=== PATIENT | female | born 1970 | race African-American/Black ===

== ENCOUNTER 2022-09-21 12:16 | Inpatient (IN) | payer MEDICAID ==
[~2022-09-21] VITALS: Ht 162.6 cm; Wt 72.0 kg
[2022-09-21] MEDS: BLOOD GLUCOSE MONITORING 1 DEV DEV FS SCH ×10 (02:00→23:00)
[2022-09-21 12:17] VITALS: BP 157/67
[2022-09-21] MEDS ORDERED: NACL 0.9% 1,000 ML IV ONE ×2 (12:25→17:35)
--- NOTE | 2022-09-21 12:30 | NUR ---
51 y/o female biba from home, c/o high bs reading at home, generalized weakness and cp that started this morning. per [facility], bs reading was reading high on their monitor. pt reports taking 18 units of insulin this morning. a&ox4, does not ambulate at this time due to pain and weakness. skin warm/dry/intact. abd x4 normoactive, round/soft/nontender. pt states she is currently having abd pain and is requesting medication for gerd. pmh: type 1 diabetic, htn, gerd nka med: 18 units of insulin around 0900 today
[2022-09-21 12:40] LABS: BASOPHILS # (AUTO) 0.1 K/uL (0.00-0.22); BASOPHILS % (AUTO) 0.5 % (0.0-2.0); HEMATOCRIT 35.5 % (36-48); HEMOGLOBIN 11.3 g/dL (12.0-16.0); LYMPHOCYTES # (AUTO) 0.8 K/uL (2.5-16.5); LYMPHOCYTES % (AUTO) 6.5 % (20.5-51.1); MEAN CORPUSCULAR HEMOGLOBIN 29 pg (27-31); MEAN CORPUSCULAR HGB CONC 32 g/dL (33-37); MEAN CORPUSCULAR VOLUME 90.2 fL (80-94); MONOCYTES # (AUTO) 0.1 K/uL (0.8-1.0); NEUTROPHILS # (AUTO) 10.7 K/uL (1.8-7.7); PLATELET COUNT (AUTO) 282 K/uL (140-450); RED BLOOD CELL COUNT(AUTO) 3.93 MIL/uL (4.20-5.40); RED CELL DISTRIBUTION WIDTH 13.9 % (11.6-13.7); WHITE BLOOD COUNT (AUTO) 11.6 K/uL (4.8-10.8)
[2022-09-21 13:00] LABS: ALBUMIN 3.8 g/dL (3.4-5.0); CARBON DIOXIDE 20.2 mmol/L (21-32); CREATININE 1.8 mg/dL (0.6-1.3); POTASSIUM 4.2 mmol/L (3.5-5.1)
[2022-09-21] MEDS ORDERED: DEXT 5% / NACL 0.45% 1,000 ML IV SCH ×2 (13:25→14:45)
[2022-09-21] MEDS ORDERED: INSULIN REGULAR, HUMAN 100 UNIT in NACL 0.9% 100 ML IV SCH ×4 (13:25→14:45)
[2022-09-21] MEDS ORDERED: NACL 0.9% 1,000 ML IV SCH (13:25)
[2022-09-21] MEDS ORDERED: DEXTROSE 50% 50 ML SYR IVP PRN ×2 (13:25→14:45)
--- NOTE | 2022-09-21 13:27 | NUR ---
51 y/o female biba from home d/t high blood sugar. Patient reports high blood sugar at home. Per [facility], patient's blood sugar on scene read HI. Patient reports nausea and vomiting. Patient denies any fever or chills. Patient states "this feels like DKA, I've been in DKA before." Medical History: DM, HTN, GERD NKDA
[2022-09-21] MEDS ORDERED: ONDANSETRON 4 MG/2 ML VIAL IVP ONE (13:55)
[2022-09-21] MEDS ORDERED: MORPHINE SULFATE 2 MG/ML SYR IVP STA (13:55)
--- NOTE | 2022-09-21 14:16 | NUR ---
Patient does not remember her medication. Called and spoke to Romulo at [facility] to get a list of medication for patient.
[2022-09-21] MEDS ORDERED: SYN.075 PO (14:27)
[2022-09-21] MEDS ORDERED: VITD400 PO (14:27)
[2022-09-21] MEDS ORDERED: INSU100I15 SQ (14:27)
[2022-09-21] MEDS ORDERED: INSU100V3 SQ (14:27)
[2022-09-21] MEDS ORDERED: GABA300C PO (14:27)
[2022-09-21] MEDS ORDERED: [UNRECOGNIZED DRUG - CODE] PO (14:27)
--- NOTE | 2022-09-21 14:28 | NUR ---
Med rec complete.
[2022-09-21] MEDS ORDERED: POTASSIUM CHLORIDE 10 MEQ TABER PO PRN (14:40)
[2022-09-21] MEDS ORDERED: guaiFENesin DM 200/20 MG-10 ML 10 ML UDC PO PRN (14:40)
[2022-09-21] MEDS ORDERED: ONDANSETRON 4 MG/2 ML VIAL IM/IVP PRN (14:40)
[2022-09-21] MEDS ORDERED: ZOLPIDEM 5 MG TAB PO PRN (14:40)
[2022-09-21] MEDS ORDERED: DOCUSATE SODIUM 100 MG GELCAP PO PRN (14:40)
[2022-09-21] MEDS ORDERED: ACETAMINOPHEN 325 MG TAB PO PRN (14:40)
[2022-09-21] MEDS: NACL 0.9% 1,000 ML IV SCH ×3 (14:45→22:45)
[2022-09-21] MEDS ORDERED: INSULIN REGULAR, HUMAN 100 UNIT/ML VIAL IVP SCH (14:45)
[2022-09-21] MEDS ORDERED: POTASSIUM CHLORIDE 40 MEQ, LIDOCAINE MPF 1% 25 MG in NACL 0.9% 250 ML IV PRN ×6 (14:45)
[2022-09-21 15:38] LABS: CHOL/HDL RATIO 2.6 (1-4.5); FREE T4 (FREE THYROXINE) 1.49 ng/dL (0.76-1.46); MAGNESIUM 1.8 mg/dL (1.8-2.4); PHOSPHORUS 4.4 mg/dL (2.5-4.9); THYROID STIMULATING HORMONE 0.73 uIU/mL (0.34-3.74)
[2022-09-21 15:49] LABS: PROTHROMBIN TIME 10.1 secs (10.8-13.4)
--- NOTE | 2022-09-21 16:20 | NUR ---
Dr. Jolley, admitting doctor, evaluating patient at bedside.
[2022-09-21 17:07] LABS: CARBON DIOXIDE 17.1 mmol/L (21-32); CREATININE 1.9 mg/dL (0.6-1.3); POTASSIUM 4.1 mmol/L (3.5-5.1)
--- NOTE | 2022-09-21 17:35 | NUR ---
Dr. Sprague, project manager, gave new order for one liter bolus now. Orders carried out.
[2022-09-21 18:09] LABS: APPEARANCE,URINE CLEAR (CLEAR); BILIRUBIN,URINE NEGATIVE (NEGATIVE); BLOOD, URINE TRACE-I (NEGATIVE); COLOR,URINE YELLOW (YELLOW); LEUKOCYTE ESTERASE ,URINE NEGATIVE (NEGATIVE); NITRITE, URINE NEGATIVE (NEGATIVE); UGLUCOSE 3+ (NEGATIVE)
--- NOTE | 2022-09-21 18:19 | NUR ---
Patient was assisted in using bedpan. Urine sample collected and walked to lab.
[2022-09-21 18:27] LABS: RBC,URINE 0-5 /HPF (0-5); TRICHOMONAS,URINE None Seen /HPF (None Seen); WBC,URINE 0-5 /HPF (0-5); YEAST,URINE None Seen /HPF (None Seen)
--- NOTE | 2022-09-21 19:08 | NUR ---
Report given to ELENI Ochoa for transfer of care.
--- NOTE | 2022-09-21 20:06 | NUR ---
Report given for transfer of care to Carie KNOWLES
--- NOTE | 2022-09-21 20:15 | NUR ---
Received report from JAMES Ochoa RN. Patient A/A/O x4, able to ambulate, on Insulin gtts @6.6 IU/ml on REJ G20+ NS @250ml/hr on LAC, Continent, Accucheck q1H.
[2022-09-21 20:34] LABS: ANION GAP 16.6 (8-16); CARBON DIOXIDE 24.1 mmol/L (21-32); CREATININE 1.7 mg/dL (0.6-1.3); POTASSIUM 3.7 mmol/L (3.5-5.1)
[2022-09-21 21:00] VITALS: BP 142/67
[2022-09-21 22:00] VITALS: BP 171/62
[2022-09-21 23:00] VITALS: BP 123/50
[2022-09-21] MEDS: HYDROcodone/APAP 7.5/325 MG 1 TAB PO PRN (23:40)
[2022-09-22] VITALS (15 sets, daily range): BP systolic 90–128; BP diastolic 42–71
[2022-09-22] MEDS: BLOOD GLUCOSE MONITORING 1 DEV DEV FS SCH ×10 (00:06→20:37)
[2022-09-22 00:30] LABS: ANION GAP 10.9 (8-16); CARBON DIOXIDE 28.4 mmol/L (21-32); CREATININE 1.5 mg/dL (0.6-1.3); POTASSIUM 3.3 mmol/L (3.5-5.1)
[2022-09-22] MEDS: NACL 0.9% 1,000 ML IV SCH ×6 (02:45→20:30)
[2022-09-22 06:23] LABS: BASOPHILS % (AUTO) 0.4 % (0.0-2.0); EOSINOPHILS % (AUTO) 0.1 % (0.0-4.0); HEMATOCRIT 27.3 % (36-48); LYMPHOCYTES # (AUTO) 1.7 K/uL (2.5-16.5); MEAN CORPUSCULAR HEMOGLOBIN 29 pg (27-31); MEAN CORPUSCULAR HGB CONC 33 g/dL (33-37); MONOCYTES # (AUTO) 0.8 K/uL (0.8-1.0); NEUTROPHILS # (AUTO) 10.3 K/uL (1.8-7.7); NEUTROPHILS % (AUTO) 80.5 % (42.2-75.2); PLATELET COUNT (AUTO) 235 K/uL (140-450); RED BLOOD CELL COUNT(AUTO) 3.07 MIL/uL (4.20-5.40); RED CELL DISTRIBUTION WIDTH 14.3 % (11.6-13.7); WHITE BLOOD COUNT (AUTO) 12.8 K/uL (4.8-10.8)
[2022-09-22 06:34] LABS: ALBUMIN 2.8 g/dL (3.4-5.0); ANION GAP 14.1 (8-16); CARBON DIOXIDE 24.6 mmol/L (21-32); CREATININE 1.7 mg/dL (0.6-1.3); POTASSIUM 3.7 mmol/L (3.5-5.1); TOTAL BILIRUBIN 0.7 mg/dL (0.0-1.0)
[2022-09-22 06:50] LABS: HEMOGLOBIN 8.9 g/dL (12.0-16.0)
--- NOTE | 2022-09-22 07:18 | NUR ---
Report given to ROGERS [employer] REFINER OPERATOR. All questions answered. Endorse with Insulin Drip running @0.05units & D5 1/2NS @200ml/hr. Last BS @0630= 114mg/dl.
--- NOTE | 2022-09-22 08:03 | NUR ---
ON DUTY RECEIVED THIS PT A/OX4, SPEAKS FULL SENTENCES, FOLLOWS COMMAND, DENIES ANY PAIN AND UNCONFORT. PT WAS ON INSULINE DRIP ON 0.05U/HR. WITH D5 1/2 NS RUNING ON 200ML/HR. BUT BAG ALREADY EMPTY. NEW BAG WAS CHANGED AND TURNED TO 250ML/HR PER EMAR ORDER. BS CHECK DONE 71. APPLE JUICE AND CRAMBARY JUICE OFFERED AND ENCOURAGED PT TO DRINK. YULISSA THE BLOOD FOR CMP VIA LJ IV SL @0800 PT WALKED TO BATHROOM BY HERSELF IN STEADY GAIT ONCE @0740
[2022-09-22 08:26] LABS: ANION GAP 10.9 (8-16); CARBON DIOXIDE 27.1 mmol/L (21-32); CREATININE 1.9 mg/dL (0.6-1.3)
--- NOTE | 2022-09-22 08:39 | NUR ---
PATIENT HAS BEEN SCREENED AND CATEGORIZED HIGH NUTRITION RISK. PATIENT WILL BE SEEN WITHIN 1-2 DAYS OF ADMISSION. 09/21/22-09/23/[address]
[2022-09-22] MEDS ORDERED: GABAPENTIN 300 MG CAP PO SCH ×2 (09:00)
[2022-09-22] MEDS: BENAZEPRIL 20 MG TAB PO SCH (09:00)
[2022-09-22] MEDS: amLODIPine 5 MG TAB PO SCH (09:00)
--- NOTE | 2022-09-22 09:10 | NUR ---
BS 68 NOW, INSULINE DRIP STOPPED. D5 1/2 NS TURNED INTO 150ML/HR FROM 250ML/HR. APPLE GIVEN ONE MORE TIME. BP IS IN LOW SITE. 90/69 HR 85. MORNING BP MEDS HOLD NOW.
[2022-09-22] MEDS: PANTOPRAZOLE 40 MG TABEC PO SCH (09:19)
[2022-09-22] MEDS ORDERED: DEXTROSE 50% 50 ML SYR IVP PRN (10:05)
[2022-09-22] MEDS: INSULIN LISPRO SLIDING SCALE 100 UNITS/ML VIAL SUBQ PRN ×2 (11:52→17:03)
[2022-09-22] MEDS: INSULIN LANTUS 100 UNITS/ML 10 ML VIAL SUBQ SCH (11:59)
--- NOTE | 2022-09-22 12:19 | NUR ---
PER PT REQUESTS, HOSPITAL GOWN AND LINEN WAS CHANGED WITH STUDENT NURSE ASSISTANCE.
--- NOTE | 2022-09-22 12:29 | NUR ---
LUNCH TRAY WAS OFFERED TO PT .
--- NOTE | 2022-09-22 13:23 | NUR ---
PER DR. VALDEZ'S MESSAGE. PT WAS ORDERED TO [facility]ARC TO M/S. NURSING SUP WAS NOTIFIED BY BELLA. KNOWLES.
--- NOTE | 2022-09-22 15:40 | NUR ---
09/22/22 RD INITIAL ASSESSMENT COMPLETED. PLEASE REFER TO NUTRITION ASSESSMENT UNDER CARE ACTIVITY FOR ESTIMATED NUTRITIONAL NEEDS. 1. CONTINUE WITH [facility] DIET. 2. MONITOR PO INTAKE 3. RD TO FOLLOW-UP 3-5 DAYS, MODERATE RISK TARUN SAGE RD
[2022-09-22] MEDS: GABAPENTIN 300 MG CAP PO SCH (17:08)
[2022-09-22] MEDS: HYDROcodone/APAP 7.5/325 MG 1 TAB PO PRN (20:23)
--- NOTE | 2022-09-23 01:56 | NUR ---
PATIENT STABLE VITALS SIGNS IN NORMAL LIMITS SLEEPING NOT COMPLAINING OF PAIN AT THIS TIME SR 85 ON MONITOR
[2022-09-23 03:47] VITALS: BP 119/62
--- NOTE | 2022-09-23 05:05 | NUR ---
PATIENT TRANSFER TO [facility] UNIT ROOM 104 A STABLE VITALS SIGNS IN NORMAL LIMITS SR 80 ON MONITOR REPORT AND ENDORSE CARE TO HARIS KNOWLES
--- NOTE | 2022-09-23 05:48 | NUR ---
RECEIVED PT FROM ICU FOR CONTINUITY OF CARE. PT IS AWAKE AND IN STABLE CONDITION. NO SIGNS OF ACUTE DISTRESS NOTED. VITALS CURRENTLY STABLE. ORIENTED PT TO ROOM, BED, AND CALL LIGHT CONTROLS. CALL LIGHT WITHIN REACH, WILL CONTINUE TO MONITOR.
[2022-09-23] MEDS: NACL 0.9% 1,000 ML IV SCH (06:10)
[2022-09-23] MEDS: HYDROcodone/APAP 7.5/325 MG 1 TAB PO PRN ×2 (06:11→13:06)
[2022-09-23] MEDS: BLOOD GLUCOSE MONITORING 1 DEV DEV FS SCH ×2 (06:33→11:59)
[2022-09-23] MEDS: INSULIN LISPRO SLIDING SCALE 100 UNITS/ML VIAL SUBQ PRN ×2 (06:34→11:59)
--- NOTE | 2022-09-23 07:05 | NUR ---
RECEIVED REPORT FROM BUSINESS OFFICE TECHNICIAN NURSE FOR CONTINUITY OF CARE. PT IS STABLE AT THIS TIME.
--- NOTE | 2022-09-23 07:56 | NUR ---
ENDORSED PT TO DAY SHIFT NURSE IN STABLE CONDITION. 0730 BLOOD GLUCOSE = 224. 4 UNITS OF HUMALOG GIVEN.
[2022-09-23 08:00] VITALS: BP 156/68
[2022-09-23 09:06] LABS: T4 (THYROXINE) 11.1 ug/dL (4.5-12.0)
[2022-09-23] MEDS: GABAPENTIN 300 MG CAP PO SCH ×2 (09:31→13:06)
[2022-09-23] MEDS: PANTOPRAZOLE 40 MG TABEC PO SCH (09:31)
[2022-09-23] MEDS: BENAZEPRIL 20 MG TAB PO SCH (09:31)
[2022-09-23] MEDS: amLODIPine 5 MG TAB PO SCH (09:31)
[2022-09-23 09:32] LABS: CREATININE 1.4 mg/dL (0.6-1.3)
[2022-09-23] MEDS: INSULIN LANTUS 100 UNITS/ML 10 ML VIAL SUBQ SCH (09:34)
[2022-09-23 10:29] LABS: BASOPHILS % (AUTO) 0.5 % (0.0-2.0); EOSINOPHILS % (AUTO) 0.3 % (0.0-4.0); HEMATOCRIT 30.7 % (36-48); HEMOGLOBIN 10.1 g/dL (12.0-16.0); LYMPHOCYTES # (AUTO) 2.1 K/uL (2.5-16.5); MEAN CORPUSCULAR HEMOGLOBIN 30 pg (27-31); MEAN CORPUSCULAR HGB CONC 33 g/dL (33-37); MEAN CORPUSCULAR VOLUME 89.7 fL (80-94); MONOCYTES # (AUTO) 0.6 K/uL (0.8-1.0); MONOCYTES % (AUTO) 5.8 % (1.7-9.3); NEUTROPHILS # (AUTO) 7.1 K/uL (1.8-7.7); NEUTROPHILS % (AUTO) 72.4 % (42.2-75.2); PLATELET COUNT (AUTO) 232 K/uL (140-450); RED BLOOD CELL COUNT(AUTO) 3.42 MIL/uL (4.20-5.40); RED CELL DISTRIBUTION WIDTH 15.1 % (11.6-13.7); WHITE BLOOD COUNT (AUTO) 9.8 K/uL (4.8-10.8)
[2022-09-23 13:52] VITALS: BP 156/68
== END 2022-09-23 15:50 | disposition home or self-care (01) | DRG 420 ==
LOC: MED 12:16 → MTU 13:57 → MIC 18:41 → MTU 09-23 04:42
PROVIDERS: ADMIT Family Medicine; ATTEND Family Medicine
DX: E11.10 Type 2 diabetes mellitus with ketoacidosis without coma (principal); N17.0 Acute kidney failure with tubular necrosis; R65.11 Systemic inflammatory response syndrome (SIRS) of non-infectious origin with acute organ dysfunction; E86.0 Dehydration; E11.22 Type 2 diabetes mellitus with diabetic chronic kidney disease; K21.9 Gastro-esophageal reflux disease without esophagitis; E11.65 Type 2 diabetes mellitus with hyperglycemia; I12.9 Hypertensive chronic kidney disease with stage 1 through stage 4 chronic kidney disease, or unspecified chronic kidney disease; N18.9 Chronic kidney disease, unspecified; Z20.822 Contact with and (suspected) exposure to COVID-19; Z91.14 Patient's other noncompliance with medication regimen; Z79.4 Long term (current) use of insulin
CPT/HCPCS: 36415; 36600; 71045; 76770; 80048; 80053; 81001; 82150; 82803; 82948; 83036; 83605; 83690; 83735; 83880; 84100; 84436; 84439; 84443; 84479; 85025; 85610; 85730; 87081; 96361; 96374; 96375; 99291; J1815; J2270; J2405; Q0092

== ENCOUNTER 2023-02-17 21:02 | Inpatient (IN) | payer MEDICAID ==
[~2023-02-17] VITALS: Ht 162.6 cm; Wt 68.5 kg
[~2023-02-17 21:02] MED LIST: GABA300C PO; INSU100I15 SQ; INSU100V3 SQ; SYN.075 PO; VITD400 PO; [UNRECOGNIZED DRUG - CODE] PO
[2023-02-17 21:25] VITALS: BP 153/79; PULSE 91; RESP 18; TEMP 97.6; O2SAT 99
[2023-02-17 23:42] LABS: BASOPHILS # (AUTO) 0.1 K/uL (0.00-0.22); BASOPHILS % (AUTO) 0.6 % (0.0-2.0); EOSINOPHILS % (AUTO) 0.1 % (0.0-4.0); HEMATOCRIT 37.8 % (36-48); HEMOGLOBIN 12.4 g/dL (12.0-16.0); LYMPHOCYTES # (AUTO) 2.1 K/uL (2.5-16.5); LYMPHOCYTES % (AUTO) 15.6 % (20.5-51.1); MEAN CORPUSCULAR HEMOGLOBIN 29 pg (27-31); MEAN CORPUSCULAR HGB CONC 33 g/dL (33-37); MEAN CORPUSCULAR VOLUME 88.6 fL (80-94); MONOCYTES # (AUTO) 0.5 K/uL (0.8-1.0); MONOCYTES % (AUTO) 3.8 % (1.7-9.3); NEUTROPHILS # (AUTO) 10.8 K/uL (1.8-7.7); NEUTROPHILS % (AUTO) 79.9 % (42.2-75.2); PLATELET COUNT (AUTO) 279 K/uL (140-450); RED BLOOD CELL COUNT(AUTO) 4.27 MIL/uL (4.20-5.40); RED CELL DISTRIBUTION WIDTH 14.3 % (11.6-13.7); WHITE BLOOD COUNT (AUTO) 13.5 K/uL (4.8-10.8)
[2023-02-18] VITALS (7 sets, daily range): BP systolic 129–155; BP diastolic 61–75; PULSE 75–92; RESP 16–18; TEMP 97.3–97.9; O2SAT 97–100
[2023-02-18] LABS: ALBUMIN 3.4 g/dL (3.4-5.0); ANION GAP 11.7 (8-16); ASPARTATE AMINOTRANSFERASE 22 U/L (15-37); CARBON DIOXIDE 35.6 mmol/L (21-32); CHLORIDE 94 mmol/L (98-107); CREATININE 2.3 mg/dL (0.6-1.3); GFR ARICAN-AMERICAN 29 mL/min (>90); GLUCOSE 198 mg/dL (74-106); LIPASE 43 U/L (73-393); POTASSIUM 3.3 mmol/L (3.5-5.1); SODIUM SERUM 138 mmol/L (136-145); TOTAL BILIRUBIN 0.9 mg/dL (0.0-1.0); UREA NITROGEN, BLOOD 49 mg/dL (7-18)
--- NOTE | 2023-02-18 00:01 | NUR ---
PT TO BED 5
--- NOTE | 2023-02-18 00:20 | NUR ---
52 Y/O F BIB SELF FROM HOME WITH DAUGHTER BEDSIDE C/C OF GENRALIZED WEAKNESS X2DAYS WITH NV DENIES DIARRHEA, FEELS DEHYDRATED AND HAS CHEST PAIN 7/10 WITH PRESSURE. PT STATED SHE TOOK TYLENOL WITH NO RELIEF DUE TO NOT BEING ABLE TO KEEP ANYTHING DOWN. PT IS AMBULATORY, A&OX4, SKIN INTACT. PMH- ACID REFLUX, NEUROPATHY, DM NKA
--- NOTE | 2023-02-18 00:20 | NUR ---
CALL LIGHT WITHIN REACH
--- NOTE | 2023-02-18 00:25 | NUR ---
Dr. Sanchez examining patient.
[2023-02-18] MEDS ORDERED: MORPHINE SULFATE 4 MG/ML SYR IVP ONE ×2 (00:30→07:00)
[2023-02-18] MEDS ORDERED: KCL 20 MEQ IN 100 mL PREMIX 100 ML IV ONE (00:30)
[2023-02-18] MEDS ORDERED: NACL 0.9% 1,000 ML IV ONE ×2 (00:30→08:00)
[2023-02-18 01:26] LABS: APPEARANCE,URINE CLEAR (CLEAR); BILIRUBIN,URINE 1+ (NEGATIVE); BLOOD, URINE NEGATIVE (NEGATIVE); COLOR,URINE YELLOW (YELLOW); LEUKOCYTE ESTERASE ,URINE NEGATIVE (NEGATIVE); NITRITE, URINE NEGATIVE (NEGATIVE); UGLUCOSE 3+ (NEGATIVE)
[2023-02-18 01:37] LABS: BARBITURATE, URINE NEGATIVE ng/ml (NEG <=200); BENZODIAZEPINE, URINE NEGATIVE ng/mL (NEG <=200); CANNABINOID, URINE NEGATIVE ng/mL (NEG <=50); COCAINE, URINE NEGATIVE ng/mL (NEG <=300); OPIATE, URINE NEGATIVE ng/mL (NEG <=2000); PHENCYCLIDINE SCREEN,URINE NEGATIVE ng/mL (NEG <=25)
[2023-02-18] MEDS ORDERED: ASPIRIN 325 MG TAB PO ONE (03:45)
--- NOTE | 2023-02-18 07:23 | NUR ---
Pt report given to Izaiah ERICKSON. Transfer of care at this time.
--- NOTE | 2023-02-18 07:23 | NUR ---
REPORT RECEIVED FROM IDA, CONTINUATION OF CARE AT THIS POINT.
[2023-02-18] MEDS ORDERED: ZOLPIDEM 5 MG TAB PO PRN (08:00)
[2023-02-18] MEDS ORDERED: NITROGLYCERIN 0.4 MG TAB SL PRN (08:00)
[2023-02-18] MEDS ORDERED: LORazepam 1 MG TAB PO PRN (08:00)
[2023-02-18] MEDS ORDERED: ACETAMINOPHEN 325 MG TAB PO PRN (08:00)
[2023-02-18] MEDS ORDERED: INSULIN LISPRO 100 UNITS/ML VIAL SUBQ ONE (08:05)
[2023-02-18 08:41] LABS: PROTHROMBIN TIME 10.3 secs (10.8-13.4)
--- NOTE | 2023-02-18 08:41 | NUR ---
PATIENT HAS BEEN SCREENED AND CATEGORIZED LOW NUTRITION RISK. PATIENT WILL BE SEEN WITHIN 7 DAYS OF ADMISSION. 02/25/[address]
[2023-02-18] MEDS ORDERED: DEXTROSE 50% 50 ML SYR IVP PRN (08:45)
--- NOTE | 2023-02-18 09:15 | NUR ---
ADMITTED FROM [facility]IA [facility]. A & O X4. SPEECH CLEAR. NO C/O PAIN. NO SOB, NOTED. SKIN WARM, DRY, AND INTACT. KEEP COMFORTABLE ON BED. EXPLAINED DIAGNOSIS, PLAN OF CARE, PAIN MANAGEMENT TEACHING, DIET, USE OF CALL LIGHT/BED/TV/BATHROOM. VERBALIZED UNDERSTANDING. CALL LIGHT WITHIN REACH.
--- NOTE | 2023-02-18 09:24 | NUR ---
Patient will be admitted to care of [facility]. Admited to TELEMETRY. Will go to room 119-A. Belongings list completed. Report to TRAM KNOWLES.
[2023-02-18] MEDS: ASPIRIN 81 MG TAB.CHEW PO SCH (09:43)
[2023-02-18] MEDS: ATORVASTATIN 20 MG TAB PO SCH (09:43)
[2023-02-18] MEDS: BLOOD GLUCOSE MONITORING 1 DEV DEV FS SCH ×3 (11:06→20:34)
--- NOTE | 2023-02-18 11:40 | NUR ---
WENT TO BATHROOM WITHOUT ASSISTANCE. TOLERATED WELL. NO C/O PAIN.
[2023-02-18 12:51] LABS: ANION GAP 12.7 (8-16); CREATININE 1.9 mg/dL (0.6-1.3); POTASSIUM 3.7 mmol/L (3.5-5.1)
[2023-02-18] MEDS: MORPHINE SULFATE 2 MG/ML SYR IVP PRN ×3 (13:26→22:38)
[2023-02-18] MEDS: SODIUM CHLORIDE FLUSH 10 ML SYR IVF SCH ×2 (13:35→20:37)
--- NOTE | 2023-02-18 15:30 | NUR ---
C/O GENERALIZED WEAKNESS. ASKED TO CHECK HER BLOOD SUGAR. BLOOD SUGAR 465. NO ACUTE DISTRESS NOTED. INFORMED DR. MANTILLA AT THE NURSE STATION AT THIS TIME AND ORDERED 15 UNITS SUB-Q HUMALOG INSULIN X1 DOSE. NO FURTHER ORDER RECEIVED. INFORMED CHARGE NURSE SHOAIB ABBOTT.
[2023-02-18] MEDS ORDERED: INSULIN LISPRO 100 UNITS/ML VIAL SUBQ SCH (15:45)
[2023-02-18] MEDS: PANTOPRAZOLE 40 MG TABEC PO SCH (16:26)
--- NOTE | 2023-02-18 17:01 | NUR ---
BLOOD SUGAR 422, DR. MANTILLA ORDERED TO GIVE COVERAGE FROM [employer]. INFORMED CHARGE NURSE SHOAIB ABBOTT
[2023-02-18] MEDS: INSULIN LISPRO SLIDING SCALE 100 UNITS/ML VIAL SUBQ PRN ×2 (17:09→20:35)
--- NOTE | 2023-02-18 18:30 | NUR ---
BLOOD SUGAR 280, DR. MANTILLA ORDERED TO GIVE 25 UNITS SUB-Q LANTUS. INFORMED CHARGE NURSE SHOAIB ABBOTT.
[2023-02-18] MEDS: INSULIN LANTUS 100 UNITS/ML 10 ML VIAL SUBQ SCH (18:33)
--- NOTE | 2023-02-18 19:10 | NUR ---
BEDSIDE REPORT GIVEN TO HARIS ABBOTT. IN STABLE CONDITION.
--- NOTE | 2023-02-18 19:30 | NUR ---
RECEIVED REPORT FROM DAY SHIFT NURSE TRAM FOR CONTINUITY OF CARE. PATIENT IS A&O X4. PATIENT IS ON 2L NC, BREATHING IS NORMAL WITH SYMMETRICAL RISE AND FALL OF CHEST. IV IS A 24G R WRIST, NO FLUIDS RUNNING AT THIS TIME. PATIENT IS AWAKE, SITTING IN HIGH-FOWLERS POSITION VISITING WITH FAMILY. BED IS IN LOWEST POSITION, WHEELS LOCKED, CALL LIGHT IN PLACE. WILL CONTINUE TO OBSERVE PATIENT.
--- NOTE | 2023-02-18 23:40 | NUR ---
PATIENT CALLED AND REQUESTED PAIN MEDICATION FOR 9/10 CHEST PAIN. CHECKED PATIENT'S VITALS AND CHART; MORPHINE WAS APPROPRIATE TO ADMINISTER. MEDICATION WAS ADMINISTERED SUCCESSFULLY WITHOUT ANY ISSUES WITH IV. REASSESSED PATIENT AT 2338, PATIENT WAS SLEEPING. BREATHING WAS NORMAL WITH SYMMETRICAL RISE AND FALL OF CHEST. WILL CONTINUE TO OBSERVE PATIENT.
[2023-02-19] VITALS (11 sets, daily range): BP systolic 138–187; BP diastolic 69–101; PULSE 76–92; RESP 18–20; TEMP 96–99; O2SAT 97–100
[2023-02-19] MEDS: MORPHINE SULFATE 2 MG/ML SYR IVP PRN ×3 (00:21→13:19)
--- NOTE | 2023-02-19 01:30 | NUR ---
PATIENT CALLED AT 0015 AND REPORTED SHE WAS IN PAIN. OBTAINED 0000 VITALS ON PATIENT. LOWEST BP WAS 172/81. CHECKED PATIENT'S CHART; PATIENT HAD A TWO TIME DOSE AVAILABLE OF MORPHINE 2MG Q30 MIN. FOR CHEST PAIN. AFTER CONSULTING WITH CHARGE NURSE ENEDINA; IT WAS DECIDED, BASED ON PATIENT'S STATEMENT OF CHEST PAIN AND HIGH BP, TO GIVE THE MORPHINE Q30MIN TO PATIENT. REASSESSED PATIENT AT 0121; PATIENT STATED PAIN WAS ABOUT 1/10 AND BP WAS 122/54. WILL CONTINUE TO OBSERVE PATIENT.
--- NOTE | 2023-02-19 04:30 | NUR ---
PATIENT HAS BEEN LYING SUPINE SLEEPING SINCE LAST REASSESSMENT OF MORPHINE. BREATHING IS NORMAL WITH SYMMETRICAL RISE AND FALL OF CHEST. WILL CONTINUE TO OBSERVE PATIENT.
[2023-02-19] MEDS: SODIUM CHLORIDE FLUSH 10 ML SYR IVF SCH ×3 (05:36→21:00)
[2023-02-19] MEDS: BLOOD GLUCOSE MONITORING 1 DEV DEV FS SCH ×4 (06:30→21:00)
--- NOTE | 2023-02-19 06:32 | NUR ---
PATIENT REQUESTED MORPHINE FOR 8/10 CHEST PAIN. CHECKED PATIENT'S VITALS AND CHART; MORPHINE WAS APPROPRIATE TO ADMINISTER. MEDICATION WAS ADMINISTERED SUCCESSFULLY WITH NO ISSUES WITH IV. WILL CONTINUE TO OBSERVE PATIENT.
--- NOTE | 2023-02-19 07:02 | NUR ---
RECEIVED PT ON ROOM AIR, SATURATION 98%. NO DISTRESS NOTED, NO SOB, RESTING COMFORTABLY. CALL LIGHT WITHIN REACH OF PT. WILL CONTINUE TO MONITOR.
--- NOTE | 2023-02-19 07:10 | NUR ---
ENDORSED TO DAY SHIFT NURSE TRAM FOR CONTINUITY OF CARE. PATIENT IS STABLE.
--- NOTE | 2023-02-19 07:10 | NUR ---
ASSUMED CONTINUITY OF CARE. INITIAL ASSESSMENT DONE. KEEP COMFORTABLE ON BED. CALL LIGHT WITHIN REACH.
[2023-02-19] MEDS ORDERED: INSULIN LISPRO 100 UNITS/ML VIAL SUBQ ONE (07:30)
[2023-02-19 08:25] LABS: ANION GAP 13.5 (8-16); CARBON DIOXIDE 28.6 mmol/L (21-32); CREATININE 1.3 mg/dL (0.6-1.3); POTASSIUM 4.1 mmol/L (3.5-5.1)
[2023-02-19] MEDS: FAMOTIDINE 20 MG TAB PO SCH ×3 (08:41→22:09)
[2023-02-19] MEDS: ASPIRIN 81 MG TAB.CHEW PO SCH ×2 (08:41→10:06)
[2023-02-19] MEDS: ATORVASTATIN 20 MG TAB PO SCH ×2 (08:41→10:06)
[2023-02-19] MEDS: PANTOPRAZOLE 40 MG TABEC PO SCH (08:41)
[2023-02-19 08:52] LABS: CHOL/HDL RATIO 2.5 (1-4.5); MAGNESIUM 1.9 mg/dL (1.8-2.4)
[2023-02-19] MEDS ORDERED: PANTOPRAZOLE 40 MG INJ VIAL IVP SCH (09:08)
[2023-02-19] MEDS: INSULIN LANTUS 100 UNITS/ML 10 ML VIAL SUBQ SCH (09:55)
[2023-02-19] MEDS: GABAPENTIN 300 MG CAP PO SCH ×3 (10:07→16:57)
--- NOTE | 2023-02-19 12:26 | NUR ---
DC PLANN[age] YRS OLD FEMALE PATIENT WAS ADMITTED FROM HOME WITH A DX OF CHEST PAIN . PATIENT HAS A HX OF DM, HTN, NEUROPATHY. CXR SHOWED BORDERLINE CARDIOMEGALY . RENAL US SHOWED 2-3MM RENAL CALCULUS VS MEDULLARY FAT. ADMINISTERED. IVF, MORPHINE IV AND CONTINUED HOME MEDS. CONSULTED WITH NEPHRO AND CARDIO. DC PLAN TO GO HOME WHEN STABLE. CM TO FOLLOW
--- NOTE | 2023-02-19 13:21 | NUR ---
PAGED DR. MANTILLA REGARDING PT. BP AT 1300 187/101. INFORMED CHARGE NURSE SHOAIB ABBOTT.
--- NOTE | 2023-02-19 14:41 | NUR ---
DR. MANTILLA CAME, INFORMED PT. BP AT 1300 187/101, AND AT 1410 BP 173/90. NO ORDER RECEIVED FROM DR. MANTILLA. CHARGE NURSE MADE AWARE.
--- NOTE | 2023-02-19 16:02 | NUR ---
History Department Chair LITHOSTRIPPER conducted a discharge planning assessment with pts. LITHOSTRIPPER confirmed the demographics on the face sheet. Pt . has insight as to why she is in the hospital and what she needs to do to be more compliant with managing her diabetes. Pt, stated she lost her fiance who in August. Pt. welcomed bereavement resources. Pt. took responsibility for poor diabetes management. Pt. stated she got out of the shower and forgot to connect her pump. Pt. was without her pump all day. Once she realized, pt. tried to manage and get diabetes under control for two days prior to coming to the hospital. LITHOSTRIPPER asked pt. if there were any other barriers. PT. stated she is grieving the loss of her fiance and sometimes she just forgets about her pump. Pt. stated she is going to work on her compliance. LITHOSTRIPPER provided pt. with bereavement support and counseling resources. LITHOSTRIPPER will remain available as needed.
[2023-02-19] MEDS ORDERED: COMMUNICATION ORDER MC PRN (16:10)
--- NOTE | 2023-02-19 16:20 | NUR ---
INFORMED DR. MANTILLA WHO'S STILL AT THE NURSE STATION AT THIS TIME THAT PT. BP AT 1600 WAS 160/85. STILL NO ORDER RECEIVED. INFORMED CHARGE NURSE SHOAIB ABBOTT.
[2023-02-19] MEDS ORDERED: DICYCLOMINE HCL LIQUID 20 MG, ALUMINUM HYD/MAG/SIMETHICONE 30 ML, LIDOCAINE VISCOUS 2% ... PO PRN ×3 (16:25)
[2023-02-19] MEDS ORDERED: DICYCLOMINE HCL LIQUID 10 MG/5 ML UDC ONE (16:43)
[2023-02-19] MEDS ORDERED: ALUMINUM HYD/MAG/SIMETHICONE 30 ML UDC ONE (16:44)
--- NOTE | 2023-02-19 19:18 | NUR ---
RECEIVED PT ENDORSEMENT FROM DAY SHIFT NURSE. PT IS DISCHARGE HOME TONIGHT. PT IS WAITING FOR TRANSPORTATION TO PICK HER UP. PT IS RESTING AT THIS TIME AND ON STABLE CONDITION.
--- NOTE | 2023-02-19 19:18 | NUR ---
REPORT GIVEN TO BISHNU ABBOTT ABOUT PT. D/C ORDER. IN STABLE CONDITION.
--- NOTE | 2023-02-19 21:00 | NUR ---
NORMAL SALINE FLUSH IS NOT ADMINISTERED, PT IS DISCHARGE HOME.
--- NOTE | 2023-02-19 21:00 | NUR ---
BLOOD SUGAR NOT CHECKED, PT DID NOT RESPONSE WHEN APPROACHED. PT IS DISCHARGE HOME.
--- NOTE | 2023-02-19 21:30 | NUR ---
PRIOR TO DISCHARGE, PT COMPLAINTS OF HAVING THROAT AND PAIN ON SWALLOWING. PT REQUESTS TO HAVE LIDOCAINE VISCOUS MEDICATION. CONTACT DR. LINTON, WAITING FOR REPLY.
[2023-02-19] MEDS ORDERED: LIDO100S PO (22:02)
--- NOTE | 2023-02-19 22:05 | NUR ---
DR. LINTON ORDER TO ADMINISTER LIDOCAINE VISCOUS X1 IN MEDICATION ORDER LIST BEFORE PATIENT DISCHARGE HOME. ORDER CARRY OUT.
--- NOTE | 2023-02-19 22:25 | NUR ---
DAUGHTER IS ON BEDSIDE TO MANAGER ED PATIENT. PRIOR TO LEAVE THE ROOM, EDUCATE PT ABOUT THE IMPORTANT OF MAKING APPOINTMENT WITH HER PRIMARY PHYSICIAN. BOTH PT AND DAUGHTER UNDERSTOOD TEACHING. DISCHARGE PAPERWORK GAVE TO PT. ASSIST AND WHEEL PT TO THE LOBBY. PT IS ON STABLE CONDITION UPON DISCHARGE, DAUGHTER WILL TRANSPORT PT TO HOME.
== END 2023-02-19 22:25 | disposition home or self-care (01) | DRG 469 ==
LOC: MED 21:02 → MTU 02-18 07:59 → OBSVTOIN 02-18 07:59
PROVIDERS: ADMIT Hospitalist; ATTEND Hospitalist
DX: N17.9 Acute kidney failure, unspecified (principal); I24.8 Other forms of acute ischemic heart disease; R65.10 Systemic inflammatory response syndrome (SIRS) of non-infectious origin without acute organ dysfunction; E44.1 Mild protein-calorie malnutrition; E11.22 Type 2 diabetes mellitus with diabetic chronic kidney disease; E86.0 Dehydration; E11.65 Type 2 diabetes mellitus with hyperglycemia; E11.40 Type 2 diabetes mellitus with diabetic neuropathy, unspecified; E87.6 Hypokalemia; N18.9 Chronic kidney disease, unspecified; K21.9 Gastro-esophageal reflux disease without esophagitis; N14.19 Nephropathy induced by other drugs, medicaments and biological substances; T46.4X5A Adverse effect of angiotensin-converting-enzyme inhibitors, initial encounter; Y92.89 Other specified places as the place of occurrence of the external cause; Z79.899 Other long term (current) drug therapy; Z83.3 Family history of diabetes mellitus; Z82.3 Family history of stroke; Z82.49 Family history of ischemic heart disease and other diseases of the circulatory system; Z68.25 Body mass index [BMI] 25.0-25.9, adult; I12.9 Hypertensive chronic kidney disease with stage 1 through stage 4 chronic kidney disease, or unspecified chronic kidney disease
CPT/HCPCS: 36415; 71045; 76770; 80048; 80053; 80305; 81003; 82948; 83036; 83690; 83735; 84484; 85025; 85610; 85730; 87081; 96365; 96366; 96375; 99285; C9113; J1815; J2270; J3480; Q0092

== ENCOUNTER 2023-03-08 09:35 | Emergency (ER) | payer OTHER, MEDICAID ==
[~2023-03-08] VITALS: Ht 162.6 cm; Wt 69.9 kg
[~2023-03-08 09:35] MED LIST changes: +LIDO100S PO
[2023-03-08 09:43] VITALS: BP 185/90; PULSE 88; RESP 20; TEMP 97.4; O2SAT 99
[2023-03-08] MEDS ORDERED: KETOROLAC 30 MG/ML VIAL IM ONE (10:15)
--- NOTE | 2023-03-08 10:22 | NUR ---
PT MEDICATED ORDERED. PT TO RESTROOM TO OBTAIN UA SAMPLE. RADIOLOGY HERE TO PICK-UP PT FOR X-RAY.
--- NOTE | 2023-03-08 10:28 | NUR ---
PT OFF UNIT TO RADIOLOGY.
[2023-03-08] MEDS ORDERED: CYCL-711 PO (11:56)
[2023-03-08] MEDS ORDERED: ACET-10509 PO (11:56)
[2023-03-08] MEDS ORDERED: LID5T TP (11:56)
[2023-03-08 12:08] VITALS: BP 140/82; PULSE 79; RESP 20; TEMP 98; O2SAT 99
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
--- NOTE | 2023-03-08 12:30 | NUR ---
The patient's care was reviewed and supervised by JD CAGE RN.
== END 2023-03-08 12:08 | disposition home or self-care (01) ==
LOC: MED 09:35
DX: S16.1XXA Strain of muscle, fascia and tendon at neck level, initial encounter (principal); S46.812A Strain of other muscles, fascia and tendons at shoulder and upper arm level, left arm, initial encounter; E11.9 Type 2 diabetes mellitus without complications; K21.9 Gastro-esophageal reflux disease without esophagitis; I10 Essential (primary) hypertension; Z79.899 Other long term (current) drug therapy; V89.2XXA Person injured in unspecified motor-vehicle accident, traffic, initial encounter; Y93.89 Activity, other specified; Y92.89 Other specified places as the place of occurrence of the external cause; Y99.8 Other external cause status
CPT/HCPCS: 72125; 81025; 96372; 99285; J1885

== ENCOUNTER 2023-03-25 18:57 | Inpatient (IN) | payer MEDICAID, OTHER ==
[~2023-03-25] VITALS: Ht 162.6 cm; Wt 71.2 kg
[~2023-03-25 18:57] MED LIST changes: +ACET-10509 PO; +CYCL-711 PO; +LID5T TP
[2023-03-25 18:59] VITALS: BP 127/56; PULSE 100; RESP 17; TEMP 97.4; O2SAT 98
[2023-03-25] MEDS ORDERED: NACL 0.9% 1,000 ML IV ONE ×2 (19:10→20:45)
[2023-03-25 19:50] LABS: BASOPHILS # (AUTO) 0.2 K/uL (0.00-0.22); BASOPHILS % (AUTO) 1.6 % (0.0-2.0); HEMATOCRIT 34.3 % (36-48); LYMPHOCYTES # (AUTO) 1.6 K/uL (2.5-16.5); LYMPHOCYTES % (AUTO) 16.2 % (20.5-51.1); MEAN CORPUSCULAR HEMOGLOBIN 29 pg (27-31); MEAN CORPUSCULAR HGB CONC 32 g/dL (33-37); MEAN CORPUSCULAR VOLUME 90.5 fL (80-94); MONOCYTES # (AUTO) 0.5 K/uL (0.8-1.0); MONOCYTES % (AUTO) 4.9 % (1.7-9.3); NEUTROPHILS # (AUTO) 7.9 K/uL (1.8-7.7); NEUTROPHILS % (AUTO) 77.3 % (42.2-75.2); PLATELET COUNT (AUTO) 456 K/uL (140-450); RED BLOOD CELL COUNT(AUTO) 3.79 MIL/uL (4.20-5.40); RED CELL DISTRIBUTION WIDTH 14.6 % (11.6-13.7); WHITE BLOOD COUNT (AUTO) 10.2 K/uL (4.8-10.8)
[2023-03-25] MEDS ORDERED: KETOROLAC 15 MG/ML VIAL IVP ONE (20:00)
[2023-03-25 20:09] LABS: ALBUMIN 2.7 g/dL (3.4-5.0); ANION GAP 28.7 (8-16); CALCIUM 8.7 mg/dL (8.5-10.1); CARBON DIOXIDE 16.7 mmol/L (21-32); CREATININE 2.3 mg/dL (0.6-1.3); POTASSIUM 4.4 mmol/L (3.5-5.1); TOTAL BILIRUBIN 0.7 mg/dL (0.0-1.0); TOTAL PROTEIN, SERUM 6.9 g/dL (6.4-8.2)
[2023-03-25 20:13] LABS: LIPASE 42 U/L (73-393)
[2023-03-25 20:20] LABS: ACETONE, SERUM TRACE (NEGATIVE)
[2023-03-25] MEDS ORDERED: INSULIN REGULAR, HUMAN 100 UNIT in NACL 0.9% 100 ML IV ONE ×2 (20:45)
[2023-03-25] MEDS ORDERED: KCL 20 MEQ IN 100 mL PREMIX 100 ML IV ONE (20:45)
[2023-03-25] MEDS ORDERED: MAG SULF 2000 MG/WATER PREMIX 50 ML IV PRN (23:25)
[2023-03-25] MEDS ORDERED: ONDANSETRON 4 MG/2 ML VIAL IVP PRN (23:25)
[2023-03-25] MEDS ORDERED: MAGNESIUM OXIDE 400 MG TAB PO PRN (23:25)
[2023-03-25] MEDS ORDERED: ACETAMINOPHEN 325 MG TAB PO PRN (23:25)
[2023-03-25] MEDS ORDERED: INSULIN REGULAR, HUMAN 100 UNIT in NACL 0.9% 100 ML IV SCH ×2 (23:30)
[2023-03-25] MEDS ORDERED: NACL 0.9% 1,000 ML IV SCH (23:30)
[2023-03-26] VITALS (11 sets, daily range): BP systolic 117–166; BP diastolic 66–83; PULSE 83–104; RESP 11–18; TEMP 97.2–98.4; O2SAT 91–98
[2023-03-26 00:56] LABS: ANION GAP 33.6 (8-16); CALCIUM 7.9 mg/dL (8.5-10.1); CARBON DIOXIDE 10.7 mmol/L (21-32); CREATININE 2.5 mg/dL (0.6-1.3); POTASSIUM 5.3 mmol/L (3.5-5.1)
[2023-03-26 01:01] LABS: MAGNESIUM 1.8 mg/dL (1.8-2.4); PHOSPHORUS 4.4 mg/dL (2.5-4.9)
[2023-03-26] MEDS: BLOOD GLUCOSE MONITORING 1 DEV DEV FS SCH ×20 (03:58→23:30)
[2023-03-26 04:31] LABS: ALBUMIN 2.4 g/dL (3.4-5.0); ANION GAP 18.2 (8-16); CALCIUM 7.9 mg/dL (8.5-10.1); CARBON DIOXIDE 22.3 mmol/L (21-32); CREATININE 2.3 mg/dL (0.6-1.3); MAGNESIUM 1.6 mg/dL (1.8-2.4); PHOSPHORUS 1.8 mg/dL (2.5-4.9); POTASSIUM 3.5 mmol/L (3.5-5.1); TOTAL BILIRUBIN 0.5 mg/dL (0.0-1.0); TOTAL PROTEIN, SERUM 6.3 g/dL (6.4-8.2)
[2023-03-26] MEDS: MORPHINE SULFATE 4 MG/ML SYR IVP PRN ×3 (04:45→17:25)
[2023-03-26] MEDS ORDERED: DEXT 5% / NACL 0.45% 1,000 ML IV SCH ×2 (04:50→05:15)
[2023-03-26 05:49] LABS: BASOPHILS % (AUTO) 0.4 % (0.0-2.0); HEMATOCRIT 31.8 % (36-48); HEMOGLOBIN 10.5 g/dL (12.0-16.0); LYMPHOCYTES # (AUTO) 2.7 K/uL (2.5-16.5); LYMPHOCYTES % (AUTO) 25.2 % (20.5-51.1); MEAN CORPUSCULAR HEMOGLOBIN 29 pg (27-31); MEAN CORPUSCULAR HGB CONC 33 g/dL (33-37); MEAN CORPUSCULAR VOLUME 88.8 fL (80-94); MONOCYTES # (AUTO) 0.6 K/uL (0.8-1.0); MONOCYTES % (AUTO) 5.7 % (1.7-9.3); NEUTROPHILS # (AUTO) 7.3 K/uL (1.8-7.7); NEUTROPHILS % (AUTO) 68.7 % (42.2-75.2); PLATELET COUNT (AUTO) 413 K/uL (140-450); RED BLOOD CELL COUNT(AUTO) 3.59 MIL/uL (4.20-5.40); RED CELL DISTRIBUTION WIDTH 14.5 % (11.6-13.7); WHITE BLOOD COUNT (AUTO) 10.6 K/uL (4.8-10.8)
[2023-03-26 08:24] LABS: ANION GAP 24.7 (8-16); CARBON DIOXIDE 16.7 mmol/L (21-32); CREATININE 2.3 mg/dL (0.6-1.3); POTASSIUM 4.4 mmol/L (3.5-5.1)
[2023-03-26 08:40] LABS: MAGNESIUM 1.7 mg/dL (1.8-2.4); PHOSPHORUS 3.4 mg/dL (2.5-4.9)
[2023-03-26] MEDS ORDERED: INSULIN REGULAR, HUMAN 100 UNIT in NACL 0.9% 100 ML IV SCH ×2 (08:40)
[2023-03-26] MEDS: LEVOTHYROXINE 0.075 MG TAB PO SCH (10:19)
[2023-03-26] MEDS: amLODIPine 5 MG TAB PO SCH (10:20)
[2023-03-26 12:15] LABS: ANION GAP 17.7 (8-16); CALCIUM 7.5 mg/dL (8.5-10.1); CARBON DIOXIDE 21.7 mmol/L (21-32); CREATININE 1.9 mg/dL (0.6-1.3); POTASSIUM 3.4 mmol/L (3.5-5.1)
[2023-03-26 12:18] LABS: MAGNESIUM 1.5 mg/dL (1.8-2.4); PHOSPHORUS 1.8 mg/dL (2.5-4.9)
[2023-03-26] MEDS: GABAPENTIN 100 MG CAP PO SCH ×2 (13:23→17:21)
[2023-03-26] MEDS ORDERED: MAG SULF 2000 MG/WATER PREMIX 50 ML IV SCH (15:09)
[2023-03-26] MEDS ORDERED: SODIUM PHOS / POTASSIUM PHOS 1 PKT PDR PO SCH (15:15)
[2023-03-26 16:52] LABS: APPEARANCE,URINE CLEAR (CLEAR); BILIRUBIN,URINE 2+ (NEGATIVE); BLOOD, URINE NEGATIVE (NEGATIVE); COLOR,URINE YELLOW (YELLOW); LEUKOCYTE ESTERASE ,URINE NEGATIVE (NEGATIVE); NITRITE, URINE NEGATIVE (NEGATIVE); PROTEIN,URINE 2+ (NEGATIVE); UGLUCOSE 1+ (NEGATIVE); UROBILINOGEN,URINE 0.2 EU/dL (0.2 - 1)
[2023-03-26 18:57] LABS: ALBUMIN 2.3 g/dL (3.4-5.0); ANION GAP 10.2 (8-16); CALCIUM 7.5 mg/dL (8.5-10.1); CARBON DIOXIDE 26.1 mmol/L (21-32); CREATININE 1.9 mg/dL (0.6-1.3); POTASSIUM 3.3 mmol/L (3.5-5.1); TOTAL BILIRUBIN 0.4 mg/dL (0.0-1.0); TOTAL PROTEIN, SERUM 6.2 g/dL (6.4-8.2)
[2023-03-26] MEDS: DEXTROSE 50% 50 ML SYR IVP PRN (19:45)
[2023-03-26 22:37] LABS: ALBUMIN 2.2 g/dL (3.4-5.0); ANION GAP 9.8 (8-16); CALCIUM 7.4 mg/dL (8.5-10.1); CARBON DIOXIDE 25.5 mmol/L (21-32); CREATININE 1.8 mg/dL (0.6-1.3); POTASSIUM 3.3 mmol/L (3.5-5.1); TOTAL BILIRUBIN 0.3 mg/dL (0.0-1.0); TOTAL PROTEIN, SERUM 5.9 g/dL (6.4-8.2)
[2023-03-27] VITALS (15 sets, daily range): BP systolic 125–188; BP diastolic 56–98; PULSE 85–101; RESP 16–20; TEMP 96.9; O2SAT 94–100
[2023-03-27] MEDS: BLOOD GLUCOSE MONITORING 1 DEV DEV FS SCH ×4 (00:46→03:30)
[2023-03-27] MEDS ORDERED: DEXT 5% / NACL 0.45% 1,000 ML IV SCH (03:05)
[2023-03-27] MEDS ORDERED: INSULIN LANTUS 100 UNITS/ML 10 ML VIAL SUBQ ONE (03:10)
[2023-03-27] MEDS: DEXTROSE 50% 50 ML SYR IVP PRN (03:29)
[2023-03-27] MEDS: MORPHINE SULFATE 4 MG/ML SYR IVP PRN (03:31)
[2023-03-27 05:06] LABS: ALBUMIN 2.4 g/dL (3.4-5.0); ANION GAP 9.6 (8-16); CALCIUM 7.7 mg/dL (8.5-10.1); CARBON DIOXIDE 28.6 mmol/L (21-32); CREATININE 1.7 mg/dL (0.6-1.3); MAGNESIUM 2.2 mg/dL (1.8-2.4); POTASSIUM 3.2 mmol/L (3.5-5.1); TOTAL BILIRUBIN 0.3 mg/dL (0.0-1.0); TOTAL PROTEIN, SERUM 6.4 g/dL (6.4-8.2)
[2023-03-27 05:45] LABS: BASOPHILS % (AUTO) 0.7 % (0.0-2.0); EOSINOPHILS % (AUTO) 0.8 % (0.0-4.0); HEMATOCRIT 32.1 % (36-48); HEMOGLOBIN 10.7 g/dL (12.0-16.0); LYMPHOCYTES # (AUTO) 2.9 K/uL (2.5-16.5); MEAN CORPUSCULAR HEMOGLOBIN 30 pg (27-31); MEAN CORPUSCULAR HGB CONC 34 g/dL (33-37); MEAN CORPUSCULAR VOLUME 88.5 fL (80-94); MONOCYTES # (AUTO) 0.3 K/uL (0.8-1.0); MONOCYTES % (AUTO) 6.4 % (1.7-9.3); NEUTROPHILS # (AUTO) 1.8 K/uL (1.8-7.7); NEUTROPHILS % (AUTO) 35.1 % (42.2-75.2); PLATELET COUNT (AUTO) 427 K/uL (140-450); RED BLOOD CELL COUNT(AUTO) 3.63 MIL/uL (4.20-5.40); RED CELL DISTRIBUTION WIDTH 14.8 % (11.6-13.7); WHITE BLOOD COUNT (AUTO) 5.2 K/uL (4.8-10.8)
[2023-03-27] MEDS: LEVOTHYROXINE 0.075 MG TAB PO SCH (06:28)
[2023-03-27] MEDS ORDERED: BLOOD GLUCOSE MONITORING 1 DEV DEV FS SCH ×3 (08:00→16:30)
[2023-03-27] MEDS ORDERED: INSU100I7 SUBQ (08:09)
[2023-03-27] MEDS ORDERED: INSULIN LANTUS 100 UNITS/ML 10 ML VIAL SUBQ SCH (08:10)
[2023-03-27] MEDS ORDERED: PANTOPRAZOLE 40 MG INJ VIAL IVP SCH (09:00)
[2023-03-27] MEDS ORDERED: POTASSIUM CHLORIDE 10 MEQ TABER PO SCH (09:00)
[2023-03-27 09:03] LABS: ALBUMIN 2.5 g/dL (3.4-5.0); ANION GAP 13.4 (8-16); CALCIUM 7.7 mg/dL (8.5-10.1); CREATININE 1.7 mg/dL (0.6-1.3); POTASSIUM 3.4 mmol/L (3.5-5.1); TOTAL BILIRUBIN 0.4 mg/dL (0.0-1.0); TOTAL PROTEIN, SERUM 6.3 g/dL (6.4-8.2)
[2023-03-27] MEDS: GABAPENTIN 100 MG CAP PO SCH ×3 (09:22→17:00)
[2023-03-27] MEDS: amLODIPine 5 MG TAB PO SCH (09:22)
[2023-03-27] MEDS: hydrALAZINE 25 MG TAB PO PRN ×2 (09:24→17:17)
[2023-03-27] MEDS: HYDROcodone/APAP 5/325 MG 1 TAB TAB PO PRN ×2 (10:03→16:56)
[2023-03-27] MEDS ORDERED: INSULIN LISPRO SLIDING SCALE 100 UNITS/ML VIAL SUBQ PRN (11:40)
[2023-03-27] MEDS ORDERED: DEXTROSE 50% 50 ML SYR IVP PRN (11:40)
[2023-03-27 12:49] LABS: ALBUMIN 2.4 g/dL (3.4-5.0); ANION GAP 15.8 (8-16); CALCIUM 7.8 mg/dL (8.5-10.1); CARBON DIOXIDE 21.4 mmol/L (21-32); CREATININE 1.8 mg/dL (0.6-1.3); POTASSIUM 4.2 mmol/L (3.5-5.1); TOTAL BILIRUBIN 0.3 mg/dL (0.0-1.0); TOTAL PROTEIN, SERUM 6.4 g/dL (6.4-8.2)
[2023-03-27] MEDS ORDERED: INSULIN LISPRO 100 UNITS/ML VIAL SUBQ SCH (14:10)
[2023-03-27 16:49] LABS: ALBUMIN 2.2 g/dL (3.4-5.0); ANION GAP 12.6 (8-16); CALCIUM 7.6 mg/dL (8.5-10.1); CARBON DIOXIDE 24.1 mmol/L (21-32); CREATININE 1.7 mg/dL (0.6-1.3); POTASSIUM 3.7 mmol/L (3.5-5.1); TOTAL BILIRUBIN 0.2 mg/dL (0.0-1.0)
== END 2023-03-27 15:45 | disposition home or self-care (01) | DRG 420 ==
LOC: MED 18:57 → MTU 23:25 → MIC 03-26 06:55
PROVIDERS: ADMIT Hospitalist; ATTEND Hospitalist
DX: E10.10 Type 1 diabetes mellitus with ketoacidosis without coma (principal); N17.9 Acute kidney failure, unspecified; E10.40 Type 1 diabetes mellitus with diabetic neuropathy, unspecified; E10.22 Type 1 diabetes mellitus with diabetic chronic kidney disease; D63.8 Anemia in other chronic diseases classified elsewhere; E83.42 Hypomagnesemia; N18.30 Chronic kidney disease, stage 3 unspecified; K21.9 Gastro-esophageal reflux disease without esophagitis; I12.9 Hypertensive chronic kidney disease with stage 1 through stage 4 chronic kidney disease, or unspecified chronic kidney disease; E03.9 Hypothyroidism, unspecified; E87.6 Hypokalemia; E83.39 Other disorders of phosphorus metabolism
CPT/HCPCS: 36415; 71045; 80048; 80053; 81003; 82009; 82803; 82948; 83036; 83690; 83735; 83880; 84100; 84484; 85025; 87081; 96365; 96366; 96375; 99291; C9113; J1644; J1815; J1885; J2270; J3475; J3480

== ENCOUNTER 2023-09-03 15:21 | Emergency (ER) | payer MEDICAID ==
[~2023-09-03] VITALS: Ht 162.6 cm; Wt 66.4 kg
[~2023-09-03 15:21] MED LIST changes: +INSU100I7 SUBQ
[2023-09-03 16:10] VITALS: BP 135/68; PULSE 83; RESP 17; TEMP 97.5; O2SAT 100
[2023-09-03 18:15] VITALS: BP 120/62; PULSE 80; RESP 16; TEMP 98; O2SAT 100
== END 2023-09-03 18:15 | disposition home or self-care (01) ==
LOC: MED 15:21
DX: E11.621 Type 2 diabetes mellitus with foot ulcer (principal); L97.519 Non-pressure chronic ulcer of other part of right foot with unspecified severity; Z48.00 Encounter for change or removal of nonsurgical wound dressing; K21.9 Gastro-esophageal reflux disease without esophagitis; I10 Essential (primary) hypertension; E78.5 Hyperlipidemia, unspecified; Z79.899 Other long term (current) drug therapy
CPT/HCPCS: 99282

== ENCOUNTER 2023-10-27 05:45 | Inpatient (IN) | payer MEDICAID ==
[~2023-10-27] VITALS: Ht 162.6 cm; Wt 71.8 kg
[2023-10-27 05:52] VITALS: BP 166/93; PULSE 73; RESP 14; TEMP 98.7; O2SAT 97
[2023-10-27] MEDS ORDERED: DEXTROSE 10% 1,000 ML IV ONE (06:01)
[2023-10-27] MEDS: DEXTROSE 10% 1,000 ML IV SCH ×2 (06:06→17:24)
[2023-10-27 06:52] LABS: BASOPHILS # (AUTO) 0.1 K/uL (0.00-0.22); BASOPHILS % (AUTO) 1.1 % (0.0-2.0); EOSINOPHILS # (AUTO) 0.2 K/uL (0-0.4); HEMATOCRIT 43.2 % (36-48); HEMOGLOBIN 14.1 g/dL (12.0-16.0); LYMPHOCYTES # (AUTO) 5.2 K/uL (2.5-16.5); LYMPHOCYTES % (AUTO) 68.7 % (20.5-51.1); MEAN CORPUSCULAR HEMOGLOBIN 29 pg (27-31); MEAN CORPUSCULAR HGB CONC 33 g/dL (33-37); MEAN CORPUSCULAR VOLUME 89.4 fL (80-94); MONOCYTES # (AUTO) 0.2 K/uL (0.8-1.0); MONOCYTES % (AUTO) 3.1 % (1.7-9.3); NEUTROPHILS # (AUTO) 1.8 K/uL (1.8-7.7); NEUTROPHILS % (AUTO) 24.1 % (42.2-75.2); PLATELET COUNT (AUTO) 285 K/uL (140-450); RED BLOOD CELL COUNT(AUTO) 4.84 MIL/uL (4.20-5.40); RED CELL DISTRIBUTION WIDTH 15.6 % (11.6-13.7); WHITE BLOOD COUNT (AUTO) 7.6 K/uL (4.8-10.8)
[2023-10-27 06:58] LABS: APPEARANCE,URINE CLEAR (CLEAR); BILIRUBIN,URINE NEGATIVE (NEGATIVE); BLOOD, URINE NEGATIVE (NEGATIVE); COLOR,URINE YELLOW (YELLOW); LEUKOCYTE ESTERASE ,URINE NEGATIVE (NEGATIVE); NITRITE, URINE NEGATIVE (NEGATIVE); PH,URINE 5.5 (5.0-9.0); PROTEIN,URINE 1+ (NEGATIVE); UGLUCOSE 3+ (NEGATIVE); UROBILINOGEN,URINE 0.2 EU/dL (0.2 - 1)
[2023-10-27 07:22] LABS: ALBUMIN 3.5 g/dL (3.4-5.0); TOTAL BILIRUBIN 0.8 mg/dL (0.0-1.0); TOTAL PROTEIN, SERUM 8.7 g/dL (6.4-8.2)
[2023-10-27 07:23] LABS: ANION GAP 12.8 (8-16); CALCIUM 9.5 mg/dL (8.5-10.1); CARBON DIOXIDE 31.1 mmol/L (21-32); CREATININE 1.1 mg/dL (0.6-1.3); POTASSIUM 4.9 mmol/L (3.5-5.1)
[2023-10-27] MEDS ORDERED: MORPHINE SULFATE 4 MG/ML SYR IVP PRN (07:45)
[2023-10-27] MEDS ORDERED: KCL 20 MEQ IN 100 mL PREMIX 200 ML IV PRN (07:45)
[2023-10-27] MEDS ORDERED: POTASSIUM CHLORIDE 10 MEQ TABER PO PRN (07:45)
[2023-10-27] MEDS ORDERED: MAGNESIUM OXIDE 400 MG TAB PO PRN (07:45)
[2023-10-27] MEDS ORDERED: VANCOMYCIN PER PHARMACY MC PRN (07:45)
[2023-10-27] MEDS ORDERED: ACETAMINOPHEN 325 MG TAB PO PRN (07:45)
[2023-10-27] MEDS: DEXTROSE 5% 1,000 ML IV SCH (08:19)
[2023-10-27] MEDS ORDERED: cefTRIAXone 1,000 MG VIAL ONE (09:03)
[2023-10-27] MEDS: VANCOMYCIN 1.25GM PREMIX 250 ML IV SCH (11:03)
[2023-10-27] MEDS: BLOOD GLUCOSE MONITORING 1 DEV DEV FS SCH ×2 (17:30→23:47)
[2023-10-27 17:52] VITALS: PULSE 84; RESP 20
[2023-10-27 18:11] VITALS: PULSE 90; RESP 20; O2SAT 98
[2023-10-27 18:28] VITALS: BP 134/76; PULSE 84; RESP 20; TEMP 98.7; O2SAT 98
[2023-10-27 18:34] VITALS: PULSE 92
[2023-10-27] MEDS: hydrALAZINE 20 MG/ML VIAL IVP PRN (18:44)
[2023-10-27 20:00] VITALS: BP 149/65; PULSE 101; PULSE 102; RESP 18; TEMP 97.6; O2SAT 99
[2023-10-27] MEDS: HYDROcodone/APAP 5/325 MG 1 TAB TAB PO PRN (20:35)
[2023-10-27] MEDS: GABAPENTIN 300 MG CAP PO ONE (23:06)
[2023-10-27] MEDS: INSULIN LANTUS 100 UNITS/ML 10 ML VIAL SUBQ STA (23:08)
[2023-10-27] MEDS: GABAPENTIN 300 MG CAP ONE (23:15)
[2023-10-27] MEDS: INSULIN LISPRO SLIDING SCALE 100 UNITS/ML VIAL SUBQ PRN (23:40)
[2023-10-27 23:54] LABS: POTASSIUM 5.3 mmol/L (3.5-5.1)
[2023-10-27 23:55] LABS: ANION GAP 19.4 (8-16); CARBON DIOXIDE 23.9 mmol/L (21-32)
[2023-10-27 23:57] LABS: CALCIUM 8.4 mg/dL (8.5-10.1)
[2023-10-27 23:58] LABS: ALBUMIN 2.9 g/dL (3.4-5.0); CREATININE 1.6 mg/dL (0.6-1.3); TOTAL BILIRUBIN 0.6 mg/dL (0.0-1.0); TOTAL PROTEIN, SERUM 6.5 g/dL (6.4-8.2)
[2023-10-28] VITALS: BP 149/74; PULSE 106; PULSE 98; RESP 20; TEMP 98.3; O2SAT 99
[2023-10-28] MEDS ORDERED: INSULIN REGULAR, HUMAN 100 UNIT/ML VIAL IVP ONE (00:50)
[2023-10-28] MEDS: NACL 0.9% 1,000 ML IV ONE (02:02)
[2023-10-28 04:00] VITALS: BP 122/57; PULSE 88; PULSE 89; RESP 18; TEMP 98.3; O2SAT 96
[2023-10-28 06:41] LABS: BASOPHILS % (AUTO) 0.6 % (0.0-2.0); EOSINOPHILS # (AUTO) 0.1 K/uL (0-0.4); EOSINOPHILS % (AUTO) 0.9 % (0.0-4.0); HEMATOCRIT 31.1 % (36-48); HEMOGLOBIN 10.3 g/dL (12.0-16.0); LYMPHOCYTES # (AUTO) 2.4 K/uL (2.5-16.5); LYMPHOCYTES % (AUTO) 35.1 % (20.5-51.1); MEAN CORPUSCULAR HEMOGLOBIN 29 pg (27-31); MEAN CORPUSCULAR HGB CONC 33 g/dL (33-37); MEAN CORPUSCULAR VOLUME 88.4 fL (80-94); MONOCYTES # (AUTO) 0.3 K/uL (0.8-1.0); MONOCYTES % (AUTO) 4.6 % (1.7-9.3); NEUTROPHILS # (AUTO) 4.1 K/uL (1.8-7.7); NEUTROPHILS % (AUTO) 58.8 % (42.2-75.2); PLATELET COUNT (AUTO) 229 K/uL (140-450); RED BLOOD CELL COUNT(AUTO) 3.52 MIL/uL (4.20-5.40); RED CELL DISTRIBUTION WIDTH 15.6 % (11.6-13.7)
[2023-10-28 06:58] LABS: ANION GAP 14.2 (8-16); CALCIUM 8.1 mg/dL (8.5-10.1); CARBON DIOXIDE 24.8 mmol/L (21-32); CREATININE 1.4 mg/dL (0.6-1.3)
[2023-10-28] MEDS ORDERED: INSULIN LISPRO SLIDING SCALE 100 UNITS/ML VIAL SUBQ PRN (07:40)
[2023-10-28 08:00] VITALS: BP 132/76; PULSE 72; PULSE 74; PULSE 94; RESP 20; TEMP 97.1; O2SAT 98
[2023-10-28] MEDS ORDERED: DEXTROSE 5% 1,000 ML IV SCH (08:00)
[2023-10-28] MEDS: amLODIPine 5 MG TAB PO SCH (08:58)
[2023-10-28] MEDS: BENAZEPRIL 20 MG TAB PO SCH (08:59)
[2023-10-28] MEDS: GABAPENTIN 300 MG CAP PO SCH (09:19)
[2023-10-28 12:00] VITALS: BP 128/62; PULSE 76; PULSE 88; RESP 18; TEMP 98.3; O2SAT 96
[2023-10-28 16:00] VITALS: BP 130/74; PULSE 82; PULSE 88; RESP 20; TEMP 97.1; O2SAT 98
[2023-10-28] MEDS ORDERED: amLODIPine 5 MG TAB PO SCH ×2 (18:00)
[2023-10-28] MEDS ORDERED: BENAZEPRIL 20 MG TAB PO SCH (18:00)
[2023-10-28 20:00] VITALS: BP 135/74; PULSE 93; PULSE 94; PULSE 98; RESP 20; TEMP 97.1; O2SAT 98
[2023-10-29] VITALS: BP_SYST 108; BP_SYST 130; BP_SYST 160; BP_DIAS 70; BP_DIAS 74; PULSE 67; PULSE 88; PULSE 92; PULSE 93; PULSE 95; RESP 20; TEMP 97.1; TEMP 98.1; TEMP 98.6; O2SAT 98
[2023-10-29] MEDS: DEXTROSE 50% 50 ML SYR IVP PRN (00:34)
[2023-10-29 04:00] VITALS: BP 147/77; PULSE 84; RESP 18; TEMP 98.6; O2SAT 96
[2023-10-29] MEDS: INSULIN LISPRO SLIDING SCALE 100 UNITS/ML VIAL SUBQ PRN (05:12)
[2023-10-29 07:26] LABS: BASOPHILS % (AUTO) 0.6 % (0.0-2.0); EOSINOPHILS % (AUTO) 0.2 % (0.0-4.0); HEMATOCRIT 30.1 % (36-48); HEMOGLOBIN 9.9 g/dL (12.0-16.0); LYMPHOCYTES # (AUTO) 1.7 K/uL (2.5-16.5); LYMPHOCYTES % (AUTO) 29.5 % (20.5-51.1); MEAN CORPUSCULAR HEMOGLOBIN 29 pg (27-31); MEAN CORPUSCULAR HGB CONC 33 g/dL (33-37); MEAN CORPUSCULAR VOLUME 89.6 fL (80-94); MONOCYTES # (AUTO) 0.2 K/uL (0.8-1.0); MONOCYTES % (AUTO) 3.4 % (1.7-9.3); NEUTROPHILS # (AUTO) 3.9 K/uL (1.8-7.7); NEUTROPHILS % (AUTO) 66.3 % (42.2-75.2); PLATELET COUNT (AUTO) 218 K/uL (140-450); RED BLOOD CELL COUNT(AUTO) 3.35 MIL/uL (4.20-5.40); RED CELL DISTRIBUTION WIDTH 15.6 % (11.6-13.7); WHITE BLOOD COUNT (AUTO) 5.8 K/uL (4.8-10.8)
[2023-10-29 07:41] LABS: ANION GAP 17.2 (8-16); CALCIUM 8.2 mg/dL (8.5-10.1); CARBON DIOXIDE 22.8 mmol/L (21-32); CREATININE 1.5 mg/dL (0.6-1.3)
[2023-10-29 08:00] VITALS: BP 126/68; PULSE 84; PULSE 85; RESP 18; TEMP 97.7; O2SAT 96; O2SAT 99
[2023-10-29 12:00] VITALS: BP 142/70; PULSE 84; PULSE 89; RESP 18; TEMP 97.8; O2SAT 96
[2023-10-29 16:00] VITALS: BP 136/72; PULSE 81; PULSE 84; RESP 18; TEMP 97.3; O2SAT 96
[2023-10-29 17:05] VITALS: BP 127/67; PULSE 79; RESP 19; TEMP 97.1
[2023-12-16] MEDS ORDERED: PANT40EC PO (18:23)
[2023-12-16] MEDS ORDERED: AMLO10TA PO (18:23)
[2023-12-16] MEDS ORDERED: CALC500C17 PO (18:23)
[2023-12-16] MEDS ORDERED: ACET-9527 PO (18:23)
== END 2023-10-29 18:30 | disposition home or self-care (01) | DRG 420 ==
LOC: MED 05:45 → MTU 07:44
PROVIDERS: ADMIT Hospitalist; ATTEND Hospitalist
DX: E11.649 Type 2 diabetes mellitus with hypoglycemia without coma (principal); R65.11 Systemic inflammatory response syndrome (SIRS) of non-infectious origin with acute organ dysfunction; N17.9 Acute kidney failure, unspecified; E44.0 Moderate protein-calorie malnutrition; I10 Essential (primary) hypertension; K21.9 Gastro-esophageal reflux disease without esophagitis; E11.42 Type 2 diabetes mellitus with diabetic polyneuropathy; Z83.3 Family history of diabetes mellitus; Z82.3 Family history of stroke; Z82.49 Family history of ischemic heart disease and other diseases of the circulatory system; Z79.4 Long term (current) use of insulin; Z79.899 Other long term (current) drug therapy; Z68.27 Body mass index [BMI] 27.0-27.9, adult
CPT/HCPCS: 36415; 73660; 80048; 80053; 80076; 80202; 81003; 82803; 82947; 82948; 84443; 85025; 87040; 87081; 96360; 99285; J0360; J0696; J1644; J1815; J3372; J7060